=== PATIENT | female | born 1995 | race Asian ===

== ENCOUNTER 2018-08-15 22:33 | Emergency (ER) | payer OTHER ==
--- NOTE | 2018-08-15 23:18 | ED ---
Head Injury - HPI Summary HPI Summary: Pt is a 23 y/o female who presents to the ED s/p head injury at 18:00. She was at work when a metal strut, weighing approximately 20 lbs, became loose and hit the right frontal area of her head. Pt tried to move out of the way but was still hit. She denies any LOC. The area immediately became swollen, which resolved after taking Ibuprofen and icing the area. Pt has a persistent RICHARDS that began just in the right frontal area but is now diffuse. The pain is described as throbbing and is a 4/10 in severity, and is made worse when opening her jaw. Pt also c/o some neck pain. She denies any N/V. - History Of Current Complaint Chief Complaint: EDHeadInjury Stated Complaint: HEAD INJURY Time Seen by Provider: 08/15/18 23:07 Hx Obtained From: Patient Mechanism Of Injury: Direct Blow Onset/Duration: Started Hours Ago - 18:00, Still Present Severity Currently: Moderate Pain Intensity: 4 Pain Scale Used: 0-10 Numeric Location of Head Injury: Frontal - right Character: Throbbing Alleviating Factor(s): Ice, OTC Medications` - Ibuprofen Associated Signs And Symptoms: Neck Pain, Swelling, Headache - Allergies/Home Medications Allergies/Adverse Reactions: Allergies Allergy/AdvReac Type Severity Reaction Status Date / Time No Known Allergies Allergy Verified 08/15/18 22:44 PMH/Surg Hx/FS Hx/Imm Hx Endocrine/Hematology History: Denies: Hx Diabetes Cardiovascular History: Denies: Hx Hypertension, Hx Pacemaker/ICD History: Denies: Hx Renal Disease Musculoskeletal History: Reports: Other Musculoskeletal History - herniated disc Denies: Hx Scoliosis Sensory History: Denies: Hx Hearing Aid Neurological History: Denies: Hx Headaches, Other Neuro Impairments/Disorders Psychiatric History: Denies: Hx Panic Disorder - Surgical History Surgery Procedure, Year, and Place: Lt 5TH TOE - W/ PIN AND PIN REMOVED Infectious Disease History: No Infectious Disease History: Denies: Traveled Outside the [place] in Last 30 Days - Family History Known Family History: Positive: Diabetes - Social History Alcohol Use: Occasionally Hx Substance Use: No Substance Use Type: Reports: None Hx Tobacco Use: No Smoking Status (MU): Never Smoked Tobacco Review of Systems Negative: Vomiting, Nausea Positive: Myalgia - neck pain Positive: Other - swelling Neurological: Other - NEGATIVE: LOC Positive: Headache All Other Systems Reviewed And Are Negative: Yes Physical Exam - Summary Physical Exam Summary: Appearance: Well appearing, no pain distress Skin: warm, dry, reflects adequate perfusion Head/face: mild tenderness to right frontal area Eyes: EOMI, JAIMIE ENT: mucous membranes moist Neck: supple, non-tender Respiratory: CTA, breath sounds present Cardiovascular: RRR, pulses symmetrical Abdomen: non-tender, soft Bowel Sounds: present Musculoskeletal: normal, strength/ROM intact Neuro: normal, sensory motor intact, A&Ox3 Triage Information Reviewed: Yes Vital Signs On Initial Exam: Initial Vitals Temp Pulse Resp BP Pulse Ox 98.2 F 78 16 119/62 98 08/15/18 22:39 08/15/18 22:39 08/15/18 22:39 08/15/18 22:39 08/15/18 22:39 Vital Signs Reviewed: Yes Diagnostics - Vital Signs Vital Signs Temp Pulse Resp BP Pulse Ox 08/15/18 22:39 98.2 F 78 16 119/62 98 - Laboratory Lab Statement: Any lab studies that have been ordered have been reviewed, and results considered in the medical decision making process. Re-Evaluation - Re-Evaluation First Eval Re-Evaluation Time: 23:55 Change: Unchanged Comment: Spoke about discharge plan. Head Injury Course/Dx Course Of Treatment: Nurse's notes reviewed. Patient is alert and oriented with GCS of 15. She has no scalp hematoma only tenderness in the area of impact on the right frontal scalp. There is no step-off indicating skull fracture. She has only localized discomfort and no neurologic symptoms other than the mild headache. This improves with ice. After discussion of the patient we have elected to not perform CT scan at this point. She has no concussive symptoms currently. Concussion precautions were given to her. She has elected to return to work tonight and is cleared to do so. She will follow- up with her family physician as needed. - Diagnoses Differential Diagnosis/HQI/PQRI: Concussion Without LOC, Hematoma, Intracranial Bleed, Skull Fracture Provider Diagnoses: Minor head injury, Scalp contusion Discharge - Sign-Out/Discharge Documenting (check all that apply): Patient Departure - Discharge - Discharge Plan Condition: Improved Disposition: HOME Patient Education Materials: Head Injury (ED) Forms: *Work Release Referrals: Chinmay Solis DO [Primary Care Provider] - Additional Instructions: Tylenol, ibuprofen as needed for discomfort. Symptoms such as continued headache, difficulty with focus, imbalance, blurred vision, nausea can all be signs of concussion. If he experiences symptoms follow-up closely with your primary care physician. You may return to work. Drink plenty of fluids. Return if severe headaches, worse, new symptoms or other concerns as discussed. - Billing Disposition and Condition Condition: IMPROVED Disposition: Home - Attestation Statements Document Initiated by Steve: Yes Documenting Scribe: Namita Collins Provider For Whom Steve is Documenting (Include Credential): Harshad Anne MD Scribe Attestation: Namita Espino, scribed for Harshad Anne MD on 08/16/18 at 0041. Scribe Documentation Reviewed: Yes Provider Attestation: The documentation as recorded by the Namita jones accurately reflects the service I personally performed and the decisions made by me, Harshad Anne MD Status of Scribe Document: Viewed
[2018-08-15] MEDS ORDERED: Ibuprofen TAB* 400 MG PO ONE (23:21)
[2018-08-15] MEDS: Ondansetron ODT TAB* 4 MG PO ONE ×2 (23:43→23:44)
[2018-08-16 00:07] VITALS: BP 135/87
== END 2018-08-16 00:08 | disposition home or self-care (01) ==
LOC: ED 22:33
DX: S09.90XA Unspecified injury of head, initial encounter (principal); S00.03XA Contusion of scalp, initial encounter; W22.8XXA Striking against or struck by other objects, initial encounter; Y92.59 Other trade areas as the place of occurrence of the external cause; Y99.0 Civilian activity done for income or pay
CPT/HCPCS: 99282; A9270-GY